=== PATIENT | male | born 1985 | race Two or more races ===

== ENCOUNTER 2024-12-03 13:34 | Emergency (ER) | payer MEDICAID, SELFPAY ==
[2024-12-03 13:57] VITALS: BP 153/105; PULSE 100; RESP 18; TEMP 37; O2SAT 96; BMI 36.1
--- NOTE | 2024-12-03 14:02 | EDNOTE_ITS ---
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 There are no other associated symptoms or aggravating factors no other modifying factors, patient denies taking medication before coming to ER today Limitations: no limitations Related Data Previous Rx's ?Medication ?Instructions ?Recorded ibuprofen 800 mg tablet 800 mg PO TID PRN pain #30 t abs 06/13/22 ibuprofen 800 mg tablet 800 mg PO TID PRN pain #30 t abs 01/24/23 ciprofloxacin HCl 500 mg tablet 500 mg PO BID #14 tabs 02/10/23 (Cipro) diphenhydramine HCl 25 mg capsule 25 mg PO Q8H PRN all ergic symptoms 05/11/24 (Benadryl) #30 caps naproxen 500 mg tablet 500 mg PO BID PRN pain #30 t abs 06/02/24 naproxen 500 mg tablet 500 mg PO BID PRN pain #30 t abs 06/22/24 cephalexin 500 mg capsule 500 mg PO BID 7 days #14 cap s 12/03/24 ibuprofen 800 mg tablet 800 mg PO TID PRN pain #30 t abs 12/03/24 Allergies Allergy/AdvReac Type Severity Reaction Status Date / Time No Known Allergies Allergy Verified 06/22/24 04:32 Review of Systems Review of Systems Systems Reviewed: All systems reviewed, normal except as documented Constitutional Constitutional: Reports system reviewed and no additional complaints, except as documented, Denies fever(s) and Denies headache(s) Eyes Eyes: Reports system reviewed and no additional complaints, except as documented and Denies blurry vision ENT Ears, Nose, Mouth, and Throat: Reports system reviewed and no additional complaints, except as documented, Denies headache(s), Denies nasal congestion and Denies nasal discharge Cardiovascular Cardiovascular: Reports system reviewed and no additional complaints, except as documented, Denies chest pain and Denies dyspnea Respiratory Respiratory: Reports system reviewed and no additional complaints, except as documented, Denies chest congestion, Denies cough and Denies dyspnea Gastrointestinal Gastrointestinal: Reports system reviewed and no additional complaints, except as documented and Denies abdominal pain Musculoskeletal Musculoskeletal: Reports system reviewed and no additional complaints, except as documented, Denies abnormal gait, Reports arthralgias, Denies deformity and Denies joint swelling Integumentary/Breasts Skin/Breast: Reports system reviewed and no additional complaints, except as documented and Denies rash Neurologic Neurologic: Reports system reviewed and no additional complaints, except as documented, Reports as per HPI, Denies abnormal gait and Denies headache(s) Past Medical History Past Medical History NEUROLOGIC: Negative Neurological Disorders CARDIAC: Negative Cardiac Disorders or Congestive Heart Failure RESPIRATORY: Negative Chronic Obstructive Pulmonary Disease (COPD) or Asthma GENITOURINARY: Negative Renal Disease ENDOCRINE: Negative Diabetes Mellitus Type 1 or Diabetes Mellitus Type 2 HEMATOLOGIC: Negative Sickle Cell Disease PSYCHO/SOCIAL: Positive Schizophrenia Family History FAMILY HISTORY: Negative Family Neurologic Problems, Family Psychiatric Problems, Family Respiratory Disorders, Family Cardiac Disorders, Family Gastrointestinal Problems, Family Cancer, Family Surgery or Family Anesthesia Reaction Social History SMOKING STATUS: Current every day smoker SUBSTANCE USE: methamphetamine ED Exam General Limitations: Present no limitations General appearance: Present alert and in no apparent distress Head Head exam: Present atraumatic, normocephalic and normal inspection Eye Eye exam: Present normal appearance, PERRL and EOMI ENT ENT exam: Present normal exam, normal oropharynx and mucous membranes moist Neck Neck exam: Present normal inspection, full ROM and trachea midline Chest Chest inspection: Present normal inspection and symmetric chest wall rise Respiratory Respiratory exam: Present normal lung sounds bilaterally Cardiovascular Cardiovascular exam: Present regular rate, normal rhythm and normal heart sounds Abdominal Exam Abdominal exam: Present soft and normal bowel sounds Extremities Exam Extremities exam: Present normal inspection and full ROM Back Exam Back exam: Present normal inspection and full ROM Neurological Exam Neurological exam: Present alert, oriented X3 and CN II-XII intact Psychiatric Psychiatric exam: Present normal affect and normal mood Skin Skin exam: Present warm, dry and other (Mild erythema patient's feet have been exposed to water) Course Quality Measures none Vital Signs Vital signs: Vital Signs Temperature 98.6 F 12/03/24 13:57 Pulse Rate 100 12/03/24 13:57 Respiratory Rate 18 12/03/24 13:57 Blood Pressure 153/105 H 12/03/24 13:57 Pulse Oximetry (%) 96 12/03/24 13:57 Oxygen Delivery Method Room Air 12/03/24 13:57 O2 saturation 96% room air within normal limits Extremity Injury, Lower MDM Narrative MDM Narrative:: 39-year-old male presents emergency department with complaint of bilateral foot pain ongoing for last couple of days patient is homeless and reports using methamphetamine on a regular basis. There are no other associated symptoms or aggravating factors no other modifying factors, patient denies taking medication before coming to ER today On exam patient's bilateral foot pain no swelling no calf pain mild erythema Patient given ibuprofen course of antibiotics Patient discharged home in no distress to follow-up with primary care doctor in the next 24 to 48 hours and for any worsening symptoms to return to the ER immediately Patient data External records reviewed:: [facility] previous records Clinical information provided by:: patient Social determinants that could affect healthcare access:: substance use Patient has the following chronic illnesses:: Substance abuse How is presenting disease/condition affected by chronic disease/condition?: no chronic disease Evaluation data The following diagnostics were reviewed and interpreted by me:: other (specify) (N/A) Lab and/or radiology exams considered but not ordered:: Considered and ordered Interpretation Summary: N/A Medications / Prescriptions Medications or Prescriptions considered but not ordered:: Given Medication administrations:: Given Consultations Consultation(s) initiated? (list below): No Diagnosis Extremity Injury, Lower Differential Diagnosis: other (Post pain, foot fracture, cellulitis, abscess) Most likely diagnosis given after review of the tests above:: Foot pain Admission Indicated Admission indicated?: not indicated Admission Request Was there a request for admission?: No Disposition Plan Disposition Plan: Discharge Discharge Attestation Discharge Attestation: The patient and all family members were given an opportunity to ask questions and understood the discharge instructions. Discharge instructions specifically effects, indications for sooner follow up or return to the emergency department, and the expected course of current diagnosis. Patient condition: Stable Discharge Plan Plan Patient Disposition: HOME (Self Care) Disposition Comment: Able Prescriptions/Referrals Prescriptions/Med Rec: New ibuprofen 800 mg tablet 800 mg PO TID PRN (Reason: pain) Qty: 30 0RF cephalexin 500 mg capsule 500 mg PO BID 7 Days Qty: 14 0RF No Action ibuprofen 800 mg tablet 800 mg PO TID PRN (Reason: pain) Qty: 30 0RF ibuprofen 800 mg tablet 800 mg PO TID PRN (Reason: pain) Qty: 30 0RF ciprofloxacin HCl [Cipro] 500 mg tablet 500 mg PO BID Qty: 14 0RF naproxen 500 mg tablet 500 mg PO BID PRN (Reason: pain) Qty: 30 0RF naproxen 500 mg tablet 500 mg PO BID PRN (Reason: pain) Qty: 30 0RF diphenhydramine HCl [Benadryl] 25 mg capsule 25 mg PO Q8H PRN (Reason: allergic symptoms) Qty: 30 0RF Problem List Clinical Impression: Bilateral foot pain Patient/Caregiver Discharge Instructions Education Materials: ED RICE Additional Instructions: Please follow up with your primary care doctor in the next 24-48hrs for any worsening symptoms return here immediately Print Language: Persian Stand Alone Forms: Ruby Award Info., Patient Portal Info Letter PA/RAD TECHNOLOGIST Supervising Physician PA/RAD TECHNOLOGIST Supervising Physician: Dr. hanna
== END 2024-12-03 14:38 | disposition home or self-care (01) ==
LOC: SERX 14:32
PROVIDERS: Emergency Provider Emergency Medicine; PCP Family Medicine
DX: M79.671 Pain in right foot (principal); M79.672 Pain in left foot; F15.90 Other stimulant use, unspecified, uncomplicated; Z59.00 Homelessness unspecified
CPT/HCPCS: 99281

== ENCOUNTER 2024-12-09 10:06 | Emergency (ER) | payer MEDICAID, SELFPAY ==
[2024-12-09 10:07] VITALS: BMI 32.5
[2024-12-09 10:26] VITALS: BP 130/77; PULSE 69; RESP 18; TEMP 36.9; O2SAT 99
--- NOTE | 2024-12-09 10:47 | EDNOTE_ITS ---
Lower Extremity Injury RME/HPI General Chief Complaint: Ankle/Foot Injury Stated Complaint: FEET HURTING FOR 1 WEEK Time Seen by Provider: 12/09/24 10:08 Arrival date/time: 12/09/24 10:06 39-year-old homeless male presents to department today complaints of bilateral foot pain for more than a week patient was seen by myself 6 days ago for the same Limitations: no limitations Related Data Previous Rx's ?Medication ?Instructions ?Recorded ibuprofen 800 mg tablet 800 mg PO TID PRN pain #30 t abs 06/13/22 ibuprofen 800 mg tablet 800 mg PO TID PRN pain #30 t abs 01/24/23 ciprofloxacin HCl 500 mg tablet 500 mg PO BID #14 tabs 02/10/23 (Cipro) diphenhydramine HCl 25 mg capsule 25 mg PO Q8H PRN all ergic symptoms 05/11/24 (Benadryl) #30 caps naproxen 500 mg tablet 500 mg PO BID PRN pain #30 t abs 06/02/24 naproxen 500 mg tablet 500 mg PO BID PRN pain #30 t abs 06/22/24 cephalexin 500 mg capsule 500 mg PO BID 7 days #14 cap s 12/03/24 ibuprofen 800 mg tablet 800 mg PO TID PRN pain #30 t abs 12/03/24 clindamycin HCl 300 mg capsule 300 mg PO TID 7 days #2 1 caps 12/09/24 miconazole nitrate 2 % topical 1 spray topical BID #15 0 grams 12/09/24 spray (Lotrimin AF) Allergies Allergy/AdvReac Type Severity Reaction Status Date / Time No Known Allergies Allergy Verified 12/09/24 10:10 Review of Systems Review of Systems Systems Reviewed: All systems reviewed, normal except as documented Constitutional Constitutional: Reports system reviewed and no additional complaints, except as documented, Denies fever(s) and Denies headache(s) Eyes Eyes: Reports system reviewed and no additional complaints, except as documented and Denies blurry vision ENT Ears, Nose, Mouth, and Throat: Reports system reviewed and no additional complaints, except as documented, Denies headache(s), Denies nasal congestion and Denies nasal discharge Cardiovascular Cardiovascular: Reports system reviewed and no additional complaints, except as documented, Denies chest pain and Denies dyspnea Respiratory Respiratory: Reports system reviewed and no additional complaints, except as documented, Denies chest congestion, Denies cough and Denies dyspnea Gastrointestinal Gastrointestinal: Reports system reviewed and no additional complaints, except as documented and Denies abdominal pain Integumentary/Breasts Skin/Breast: Reports system reviewed and no additional complaints, except as documented, Denies rash and Reports other (Moisture bilateral feet) Neurologic Neurologic: Reports system reviewed and no additional complaints, except as documented, Reports as per HPI and Denies headache(s) Past Medical History Past Medical History NEUROLOGIC: Negative Neurological Disorders CARDIAC: Negative Cardiac Disorders or Congestive Heart Failure RESPIRATORY: Negative Chronic Obstructive Pulmonary Disease (COPD) or Asthma GENITOURINARY: Negative Renal Disease ENDOCRINE: Negative Diabetes Mellitus Type 1 or Diabetes Mellitus Type 2 HEMATOLOGIC: Negative Sickle Cell Disease PSYCHO/SOCIAL: Positive Schizophrenia Family History FAMILY HISTORY: Negative Family Neurologic Problems, Family Psychiatric Problems, Family Respiratory Disorders, Family Cardiac Disorders, Family Gastrointestinal Problems, Family Cancer, Family Surgery or Family Anesthesia Reaction Social History SMOKING STATUS: Heavy (> 1 pack/day) SUBSTANCE USE: methamphetamine ED Exam General Limitations: Present no limitations General appearance: Present alert and in no apparent distress Head Head exam: Present atraumatic, normocephalic and normal inspection Eye Eye exam: Present normal appearance, PERRL and EOMI; Absent conjunctival injection ENT ENT exam: Present normal exam, normal oropharynx and mucous membranes moist Neck Neck exam: Present normal inspection, full ROM and trachea midline Chest Chest inspection: Present normal inspection and symmetric chest wall rise Respiratory Respiratory exam: Present normal lung sounds bilaterally Cardiovascular Cardiovascular exam: Present regular rate, normal rhythm and normal heart sounds Abdominal Exam Abdominal exam: Present soft and normal bowel sounds Extremities Exam Extremities exam: Present normal inspection and full ROM Back Exam Back exam: Present normal inspection and full ROM Neurological Exam Neurological exam: Present alert, oriented X3, CN II-XII intact, normal gait and reflexes normal; Absent motor sensory deficit Psychiatric Psychiatric exam: Present normal affect and normal mood Skin Skin exam: Present warm, dry and other (Bilateral foot pain waterlogged) Course Quality Measures none Vital Signs Vital signs: Vital Signs Temperature 98.5 F 12/09/24 10:26 Pulse Rate 69 12/09/24 10:26 Respiratory Rate 18 12/09/24 10:26 Blood Pressure 130/77 12/09/24 10:26 Pulse Oximetry (%) 99 12/09/24 10:26 Oxygen Delivery Method Room Air 12/09/24 10:26 O2 saturation 99% room air within normal limits Extremity Injury, Lower MDM Narrative MDM Narrative:: 39-year-old homeless male presents to department today complaints of bilateral foot pain for more than a week patient was seen by myself 6 days ago for the same On exam patient appears to have been wearing wet socks in his feet on the plantar aspects appear to be damp/quite a bit of moisture Explained to the patient that he needs to keep his feet dry patient given new pair of socks Patient on a course of antibiotics as well as antifungals Patient has no open sores or bruises Patient hemodynamically stable Patient discharged home in no distress to follow-up with primary care doctor in the next 24 to 48 hours and for any worsening symptoms to return to the ER immediately Patient data External records reviewed:: [facility] previous records Clinical information provided by:: patient Social determinants that could affect healthcare access:: housing Patient has the following chronic illnesses:: Housing How is presenting disease/condition affected by chronic disease/condition?: uneffected by Evaluation data The following diagnostics were reviewed and interpreted by me:: other (specify) (N/A) Lab and/or radiology exams considered but not ordered:: Consider not ordered Interpretation Summary: N/A Medications / Prescriptions Medications or Prescriptions considered but not ordered:: Given Medication administrations:: Given Consultations Consultation(s) initiated? (list below): No Diagnosis Extremity Injury, Lower Differential Diagnosis: other (Foot pain, skin sores, trench foot) Most likely diagnosis given after review of the tests above:: Foot pain Admission Indicated Admission indicated?: not indicated Admission Request Was there a request for admission?: No Disposition Plan Disposition Plan: Discharge Discharge Attestation Discharge Attestation: The patient and all family members were given an opportunity to ask questions and understood the discharge instructions. Discharge instructions specifically effects, indications for sooner follow up or return to the emergency department, and the expected course of current diagnosis. Patient condition: Stable Discharge Plan Plan Patient Disposition: HOME (Self Care) Disposition Comment: Stable Prescriptions/Referrals Prescriptions/Med Rec: New clindamycin HCl 300 mg capsule 300 mg PO TID 7 Days Qty: 21 0RF Lotrimin AF 2 % aerosol,spray 1 spray topical BID Qty: 150 0RF No Action ibuprofen 800 mg tablet 800 mg PO TID PRN (Reason: pain) Qty: 30 0RF ibuprofen 800 mg tablet 800 mg PO TID PRN (Reason: pain) Qty: 30 0RF ciprofloxacin HCl [Cipro] 500 mg tablet 500 mg PO BID Qty: 14 0RF naproxen 500 mg tablet 500 mg PO BID PRN (Reason: pain) Qty: 30 0RF naproxen 500 mg tablet 500 mg PO BID PRN (Reason: pain) Qty: 30 0RF ibuprofen 800 mg tablet 800 mg PO TID PRN (Reason: pain) Qty: 30 0RF cephalexin 500 mg capsule 500 mg PO BID 7 Days Qty: 14 0RF diphenhydramine HCl [Benadryl] 25 mg capsule 25 mg PO Q8H PRN (Reason: allergic symptoms) Qty: 30 0RF Problem List Clinical Impression: Bilateral foot pain Patient/Caregiver Discharge Instructions Education Materials: ED Pain, Acute, Uncertain Cause Additional Instructions: Please follow up with your primary care doctor in the next 24-48hrs for any worsening symptoms return here immediately Print Language: Kinyarwanda Stand Alone Forms: Ruby Award Info., Patient Portal Info Letter PA/STAVE BOLT EQUALIZER Supervising Physician PA/CHECO Supervising Physician: Dr Fernandes
== END 2024-12-09 10:55 | disposition home or self-care (01) ==
PROVIDERS: Emergency Provider Emergency Medicine; PCP Physician Assistant
DX: M79.671 Pain in right foot (principal); M79.672 Pain in left foot; F17.210 Nicotine dependence, cigarettes, uncomplicated; Z59.00 Homelessness unspecified
CPT/HCPCS: 99281

== ENCOUNTER 2024-12-26 09:26 | Emergency (ER) | payer MEDICAID, SELFPAY ==
[2024-12-26 09:53] VITALS: BP 166/98; PULSE 96; RESP 18; TEMP 37; O2SAT 96; BMI 32.5
--- NOTE | 2024-12-26 09:58 | XR_ITS ---
Examination: Lumbar spine 3 views Technique one AP lateral coned lateral lower lumbar spine 3 views Exam date and time: December 26, 2024 1006 hrs. Indications: Onset lower back pain today. Findings: Adequate alignment lumbar vertebral bodies on the lateral view Mild diffuse lumbar disc narrowing Mild lumbar spondylosis No lumbar fracture Impression: Mild diffuse lumbar degenerative disc disease
--- NOTE | 2024-12-26 10:01 | EDNOTE_ITS ---
ED Back Injury Pain RME/HPI General Chief Complaint: Back Pain/Injury Stated Complaint: BACK PAIN X TODAY; FEET HURT TOO Time Seen by Provider: 12/26/24 09:58 Source: patient Arrival date/time: 12/26/24 09:26 39-year-old male with no known medical history presents to the emergency room with a chief complaint of lower back pain x 1 day Mode of arrival: ambulatory Limitations: no limitations Related Data Previous Rx's ?Medication ?Instructions ?Recorded ibuprofen 800 mg tablet 800 mg PO TID PRN pain #30 t abs 06/13/22 ibuprofen 800 mg tablet 800 mg PO TID PRN pain #30 t abs 01/24/23 ciprofloxacin HCl 500 mg tablet 500 mg PO BID #14 tabs 02/10/23 (Cipro) diphenhydramine HCl 25 mg capsule 25 mg PO Q8H PRN all ergic symptoms 05/11/24 (Benadryl) #30 caps naproxen 500 mg tablet 500 mg PO BID PRN pain #30 t abs 06/02/24 naproxen 500 mg tablet 500 mg PO BID PRN pain #30 t abs 06/22/24 ibuprofen 800 mg tablet 800 mg PO TID PRN pain #30 t abs 12/03/24 miconazole nitrate 2 % topical 1 spray topical BID #15 0 grams 12/09/24 spray (Lotrimin AF) Allergies Allergy/AdvReac Type Severity Reaction Status Date / Time No Known Allergies Allergy Verified 12/26/24 09:26 Review of Systems Review of Systems Systems Reviewed: All systems reviewed, normal except as documented Constitutional Constitutional: Reports system reviewed and no additional complaints, except as documented, Denies fatigue, Denies fever(s), Denies headache(s) and Denies weakness Eyes Eyes: Reports system reviewed and no additional complaints, except as documented, Denies blurry vision and Denies change in vision ENT Ears, Nose, Mouth, and Throat: Reports system reviewed and no additional complaints, except as documented, Denies otalgia, Denies headache(s), Denies nasal congestion, Denies throat swelling and Denies vertigo Cardiovascular Cardiovascular: Reports system reviewed and no additional complaints, except as documented, Denies chest pain, Denies dyspnea and Denies dyspnea on exertion Respiratory Respiratory: Reports system reviewed and no additional complaints, except as documented, Denies chest congestion, Denies cough, Denies dyspnea, Denies dyspnea on exertion and Denies wheezing Gastrointestinal Gastrointestinal: Reports system reviewed and no additional complaints, except as documented, Denies abdominal pain, Denies cramping, Denies nausea and Denies vomiting Genitourinary Genitourinary: Reports system reviewed and no additional complaints, except as documented, Denies dysuria and Denies hematuria Musculoskeletal Musculoskeletal: Reports system reviewed and no additional complaints, except as documented, Reports arthralgias and Reports back pain Integumentary/Breasts Skin/Breast: Reports system reviewed and no additional complaints, except as documented and Denies wounds Neurologic Neurologic: Reports system reviewed and no additional complaints, except as documented, Denies confusion, Denies headache(s), Denies lack of coordination, Denies vertigo and Denies weakness Psychiatric Psychiatric: Reports system reviewed and no additional complaints, except as documented, Denies anxiety, Denies confusion, Denies depression, Denies paranoia, Denies suicidal ideation and Denies tactile hallucinations Endocrine Endocrine: Reports system reviewed and no additional complaints, except as documented and Denies fatigue Hematologic/Lymphatic Hematologic/Lymphatic: Reports system reviewed and no additional complaints, except as documented and Denies lymphadenopathy Allergic/Immunologic Allergic/Immunologic: Reports system reviewed and no additional complaints, except as documented, Denies throat swelling, Denies urticaria and Denies wheezing ED Exam General Limitations: Present no limitations General appearance: Present alert and in no apparent distress Head Head exam: Present atraumatic Eye Eye exam: Present normal appearance, PERRL and EOMI ENT ENT exam: Present normal exam, normal oropharynx and mucous membranes moist Neck Neck exam: Present normal inspection, full ROM and trachea midline Chest Chest inspection: Present normal inspection and symmetric chest wall rise Respiratory Respiratory exam: Present normal lung sounds bilaterally Cardiovascular Cardiovascular exam: Present regular rate, normal rhythm and normal heart sounds Abdominal Exam Abdominal exam: Present soft and normal bowel sounds Extremities Exam Extremities exam: Present normal inspection and full ROM Back Exam Back exam: Present normal inspection, full ROM and vertebral tenderness Neurological Exam Neurological exam: Present alert, oriented X3 and CN II-XII intact Psychiatric Psychiatric exam: Present normal affect and normal mood Skin Skin exam: Present warm, dry, intact and normal color Course Quality Measures none Orders Category Date Time Status XR lumbar spine 2-3V Stat Exams 12/26/24 09:58 Completed Vital Signs Vital signs: Vital Signs Temperature 98.6 F 12/26/24 09:53 Pulse Rate 96 12/26/24 09:53 Respiratory Rate 18 12/26/24 09:53 Blood Pressure 166/98 H 12/26/24 09:53 Pulse Oximetry (%) 96 12/26/24 09:53 Oxygen Delivery Method Room Air 12/26/24 09:53 O2 saturation 96% within normal limits Back Pain / Injury MDM Narrative MDM Narrative:: 39-year-old male with no known medical history presents to the emergency room with a chief complaint of lower back pain x 1 day Patient is hemodynamically stable and in no apparent distress Physical examination shows point tenderness to the lumbar area of the patient's spine. There is no numbness, saddle anesthesia or loss of bowel or bladder function X-ray of the lumbar spine was completed and shows degenerative disc disease Patient was discharged and educated to follow-up with primary care provider and return to the emergency room for any evidence of worsening signs or send Patient data External records reviewed:: [facility] previous records Clinical information provided by:: patient Social determinants that could affect healthcare access:: none Patient has the following chronic illnesses:: No chronic illness How is presenting disease/condition affected by chronic disease/condition?: no chronic disease Evaluation data The following diagnostics were reviewed and interpreted by me:: lab results and radiology exam(s) Lab and/or radiology exams considered but not ordered:: Labs and radiology exams considered in order Interpretation Summary: X-ray lumbar-Findings: Adequate alignment lumbar vertebral bodies on the lateral view Mild diffuse lumbar disc narrowing Mild lumbar spondylosis No lumbar fracture Impression: Mild diffuse lumbar degenerative disc disease Medications / Prescriptions Medications or Prescriptions considered but not ordered:: No medication given Medication administrations:: No medication given Consultations Consultation(s) initiated? (list below): No Diagnosis Differential diagnosis back pain/injury: lumbar radiculopathy, strain of lumbar region, discitis and other (Degenerative disc disease) Most likely diagnosis given after review of the tests above:: Degenerative disc disease Admission Indicated Admission indicated?: not indicated Admission Request Was there a request for admission?: No Disposition Plan Disposition Plan: Discharge Discharge Attestation Discharge Attestation: The patient and all family members were given an opportunity to ask questions and understood the discharge instructions. Discharge instructions specifically effects, indications for sooner follow up or return to the emergency department, and the expected course of current diagnosis. Patient condition: Stable Discharge Plan Plan Patient Disposition: HOME (Self Care) Disposition Comment: Stable Prescriptions/Referrals Prescriptions/Med Rec: No Action ibuprofen 800 mg tablet 800 mg PO TID PRN (Reason: pain) Qty: 30 0RF ibuprofen 800 mg tablet 800 mg PO TID PRN (Reason: pain) Qty: 30 0RF ciprofloxacin HCl [Cipro] 500 mg tablet 500 mg PO BID Qty: 14 0RF naproxen 500 mg tablet 500 mg PO BID PRN (Reason: pain) Qty: 30 0RF naproxen 500 mg tablet 500 mg PO BID PRN (Reason: pain) Qty: 30 0RF ibuprofen 800 mg tablet 800 mg PO TID PRN (Reason: pain) Qty: 30 0RF diphenhydramine HCl [Benadryl] 25 mg capsule 25 mg PO Q8H PRN (Reason: allergic symptoms) Qty: 30 0RF Lotrimin AF 2 % aerosol,spray 1 spray topical BID Qty: 150 0RF Problem List Clinical Impression: Degenerative disc disease Patient/Caregiver Discharge Instructions Additional Instructions: Please follow-up with your primary care provider in the next 24 to 48 hours. The x-ray of your lower back shows degenerative disc disease. This chronic condition can be managed with your primary care provider. For any evidence of worsening signs or symptoms please return to the emergency room immediately Print Language: Albanian Stand Alone Forms: Ruby Award Info., Patient Portal Info Letter PA/[employer] Supervising Physician PA/[employer] Supervising Physician: Dr. Linder
== END 2024-12-26 12:34 | disposition home or self-care (01) ==
LOC: SERX 12:24
PROVIDERS: Emergency Provider Emergency Medicine
DX: M47.816 Spondylosis without myelopathy or radiculopathy, lumbar region (principal); M51.360 Other intervertebral disc degeneration, lumbar region with discogenic back pain only
CPT/HCPCS: 72100; 99283